=== PATIENT | male | born 1965 | race Caucasian/White ===

== ENCOUNTER 2018-03-26 00:58 | Inpatient (IN) | END 2018-03-29 17:20 | disposition home or self-care (01) | DRG 641 ==

== ENCOUNTER 2018-06-14 14:31 | Emergency (ER) | END 2018-06-14 19:43 | disposition home or self-care (01) ==

== ENCOUNTER 2018-11-02 08:31 | Emergency (ER) | payer OTHER ==
[~2018-11-02] VITALS: Ht 175.3 cm; Wt 94.0 kg
[~2018-11-02 08:31] MED LIST: AMLO-147 PO; CHLO25TA2 PO; GENVOYA PO; PARO10TA76 PO; POTA20TA96 PO
[2018-11-02 08:35] VITALS: Ht 175.3 cm; Wt 94.0 kg
[2018-11-02] MEDS ORDERED: DIPHENHYDRAMINE 50 MG INJ IV STA (09:28)
[2018-11-02] MEDS ORDERED: METOCLOPRAMIDE 10 MG INJ IV STA (09:28)
[2018-11-02] MEDS ORDERED: SOD CHLORIDE 0.9% 500 ML IV STA (09:28)
[2018-11-02] MEDS ORDERED: HYDROmorphONE 1 MG/ML SYG IV STA ×2 (09:28→11:32)
--- NOTE | 2018-11-02 10:17 | ERD ---
ER Documentation Chief Complaint Chief Complaint JON X 3 DAYS , B/L FOOT PAIN X 1 WEEK HPI This is a 53-year-old man with a history of hypertension and HIV who has multiple complaints. He says she has had a headache in the frontal vertex region that is constant with no photophobia phonophobia or positional change worsening and no fever for the past 3 days. He said that the onset of a headache his left arm and leg became tingling. Again, this started 3 days ago. He is also complaining that his feet hurt, is also having vague off-and-on chest pain to the left upper lateral chest for the past week as well for a few seconds each time. Denies any fever no GI symptoms or cough ROS All systems reviewed and are negative except as per history of present illness. Medications Home Meds Reported Medications Potassium Chloride* (K-Dur*) 10 Meq Tab.prt.sr, 10 MEQ PO TID, TAB 11/02/18 Metoprolol Tartrate* (Lopressor*) 50 Mg Tab, 50 MG PO BID, #60 TAB 11/02/18 Citalopram Hydrobromide* (Celexa*) 20 Mg Tablet, 20 MG PO DAILY, #30 TAB 11/02/18 Zolpidem Tartrate* (Zolpidem Tartrate*) 10 Mg Tablet, 10 MG PO QHS PRN for INSOMNIA, #30 TAB 11/02/18 Discontinued Reported Medications [Genvoya] No Conflict Check, 1 TAB PO DAILY 03/26/18 Chlorthalidone* (Chlorthalidone*) 25 Mg Tablet, 25 MG PO DAILY, TAB 03/26/18 Amlodipine Besylate* (Amlodipine Besylate*) 10 Mg Tablet, 10 MG PO DAILY, #30 TAB 03/26/18 Discontinued Scripts Potassium Chloride* (Potassium Chloride*) 20 Meq Tablet.er, 20 MEQ PO DAILY, #30 TAB.SA Prov:PAUL COATES DO 06/14/18 Paroxetine Hcl* (Paroxetine*) 10 Mg Tablet, 10 MG PO DAILY for 30 Days, #30 TAB 1 Refill Prov:NICK SAENZ 03/29/18 Potassium Chloride* (Potassium Chloride*) 20 Meq Tablet.er, 20 MEQ PO DAILY for 3 Days, #3 TAB.SA Prov:NICK SAENZ. 03/29/18 Allergies Allergies: Coded Allergies: No Known Allergy (Unverified , 11/02/18) PMhx/Soc History of Surgery: No Anesthesia Reaction: No Hx Neurological Disorder: No Hx Respiratory Disorders: No Hx Cardiac Disorders: Yes (HTN) Hx Psychiatric Problems: No (anxiety/depression) Hx Miscellaneous Medical Probl: Yes (insomnia) Hx Alcohol Use: Yes Hx Substance Use: No Hx Tobacco Use: No Smoking Status: Never smoker FmHx Family History: No coronary disease Physical Exam Vitals Vital Signs Date Temp Pulse Resp B/P (MAP) Pulse Ox O2 O2 Flow FiO2 Time Delivery Rate 11/02/18 97.8 81 18 181/111 97 08:35 (134) Physical Exam Const: Well-developed, well-nourished Head: Atraumatic, normocephalic Eyes: Normal Conjunctiva, PERRLA, EOMI, normal sclera, no nystagmus ENT: Normal External Ears, Nose and Mouth, moist mucus membranes. Neck: Full range of motion. No meningismus, no lymphadenopathy. Resp: Clear to auscultation bilaterally, no wheezing, rhonchi, rales Cardio: Regular rate and rhythm, no murmurs, S1 S2 present Abd: Soft, non tender x 4, non distended. Normal bowel sounds, no guarding or rebound, no pulsitile abdominal masses or bruits Skin: No petechiae or rashes, no ecchymosis , no maculopapular rash Back: No midline or flank tenderness Ext: No cyanosis, or edema, FROM x 4, normal inspection, neurovascularly intact x 4 Neur: Awake and alert, STR 5/5 x 4, subjective tingling to the left upper and lower extremity, cerebellum intact Psych: Normal Mood and Affect Result Diagram: 11/02/18 0941 11/02/18 0941 Results 24 hrs Laboratory Tests Test 11/02/18 09:41 11/02/18 09:42 White Blood Count 4.8 10^3/ul Red Blood Count 4.77 10^6/ul Hemoglobin 16.3 g/dl Hematocrit 44.0 % Mean Corpuscular Volume 92.2 fl Mean Corpuscular Hemoglobin 34.2 pg Mean Corpuscular Hemoglobin Concent 37.0 g/dl Red Cell Distribution Width 11.6 % Platelet Count 291 10^3/UL Mean Platelet Volume 8.8 fl Immature Granulocytes % 0.400 % Neutrophils % 38.9 % Lymphocytes % 47.1 % Monocytes % 12.6 % Eosinophils % 0.4 % Basophils % 0.6 % Nucleated Red Blood Cells % 0.0 /100WBC Immature Granulocytes # 0.020 10^3/ul Neutrophils # 1.9 10^3/ul Lymphocytes # 2.3 10^3/ul Monocytes # 0.6 10^3/ul Eosinophils # 0.0 10^3/ul Basophils # 0.0 10^3/ul Nucleated Red Blood Cells # 0.0 10^3/ul Sodium Level 128 mmol/L Potassium Level 4.2 mmol/L Chloride Level 86 mmol/L Carbon Dioxide Level 26 mmol/L Anion Gap 16 Blood Urea Nitrogen 9 mg/dl Creatinine 0.88 mg/dl Est Glomerular Filtrat Rate mL/min > 60 mL/min Glucose Level 119 mg/dl Calcium Level 10.0 mg/dl Troponin I < 0.012 ng/ml Prothrombin Time 12.1 Sec Prothrombin Time Ratio 0.9 INR International Normalized Ratio 0.89 Activated Partial Thromboplast Time 28.6 Sec Current Medications Medications Dose Sig/Piero Start Time Status Last (Trade) Ordered Route PRN Stop Time Admin Dose Reason Admin Sodium 500 ml @ Q1H STAT 11/02/18 DC 11/02/18 Chloride 500 mls/hr IV 09:28 09:36 11/02/18 10:27 10 mg ONCE STAT 11/02/18 DC 11/02/18 Metoclopramid IV 09:28 09:35 e HCl 11/02/18 09:30 (Reglan) 1 mg ONCE STAT 11/02/18 DC 11/02/18 Hydromorphone IV 09:28 09:36 HCl 11/02/18 09:30 (Dilaudid) 25 mg ONCE STAT 11/02/18 DC 11/02/18 Diphenhydrami IV 09:28 09:35 ne HCl 11/02/18 09:30 (Benadryl) 0.5 mg ONCE STAT 11/02/18 Hydromorphone IV 11:32 HCl 11/02/18 11:33 (Dilaudid) Ondansetron 4 mg ONCE STAT 11/02/18 HCl (Zofran IV 11:32 Inj) 11/02/18 11:33 Procedures/MDM Ordering MD: GIA CALLES DO Location: E/R Room/Bed: PROCEDURE: XR Chest. CLINICAL INDICATION: Chest pain , headache TECHNIQUE: Single portable view of the chest was obtained COMPARISON: None FINDINGS: The heart is enlarged. The lungs are clear. There is no pleural effusion or pneumothorax. RPTAT: AA IMPRESSION: Mild Cardiomegaly. .Wei Zee MD, Date Time Electronically viewed and signed by .Wei Zee MD, MD on 11/02/2018 10:02 .S/ CC: GIA CALLES DO [id number] EKG: Rate/Rhythm: Will sinus rhythm, Q waves in lead III QRS, ST, QT: NORMAL AL, QRS, QT] Impression: Abnormal EKG Ordering MD: GIA CALLES DO Location: E/R Room/Bed: PROCEDURE: CT Brain without contrast. CLINICAL INDICATION: Pain, headache TECHNIQUE: Routine CT scan of the brain was performed on a high resolution multi detector scanner without intravenous contrast. One or more of the following dose reduction techniques were used: Automated exposure control; Adjustment of the mA and/or kV according to patient size; Use of iterative reconstruction technique. CTDI = 39 mGy. DLP = 634 mGy-cm. DICOM images are available. COMPARISON: No prior relevant examinations are available for comparison. FINDINGS: Hemorrhage: No evidence of intracranial hemorrhage. Acute ischemic changes: No evidence of acute ischemic changes. Mass effect: None. Parenchymal volume: Within normal limits for age. Ventricular system: Concordant with parenchymal volume. Chronic changes: Mild chronic-appearing microvascular ischemic changes of the supratentorial white matter. Atherosclerotic calcifications of the cavernous portions of both internal carotid arteries are present. Extracranial soft tissues: Unremarkable. Calvarium: No fractures. Paranasal sinuses: Visualized paranasal sinuses are clear. Mastoid air cells: Visualized mastoid air cells are clear. IMPRESSION: No acute intracranial abnormalities. Mild chronic-appearing microvascular ischemic changes of the supratentorial white matter. RPTAT: AADD .Los Gallagher MD, Date Time Electronically viewed and signed by .Los Gallagher MD, on 11/02/2018 10:54 .B/ CC: GIA CALLES DO [id number] The patient was reevaluated at 11:30 AM. He says his headache is a 3 out of 10 currently and his left arm and leg symptoms of tingling are completely normal now. The patient states that he has not slept in 4 days. I feel the patient's symptoms are consistent with a complex migraine headache and not a stroke.. The left upper lateral chest pain is likely not cardiac in nature only lasting a few seconds but he is given warning signs. We will discharge him home with follow-up with some sleep aids and headache m edication Patient feels much better at this time, and vital signs are normal, symptoms have improved. I did give strict instructions to return to the ED if symptoms continue or worsen, patient will otherwise follow-up with primary care physician. Patient understood instructions and agreed to plan. Disclaimer: Inadvertent spelling and grammatical errors are likely due to EHR/dictation software use and do not reflect on the overall quality of patient care. Also, please note that the electronic time recorded on this note does not necessarily reflect the actual time of the patient encounter. Departure Diagnosis: Primary Impression: Migraine headache Migraine type: unspecified Status migrainosus presence: without status migrainosus Intractability: not intractable Qualified Codes: G43.909 - Migraine, unspecified, not intractable, without status migrainosus Additional Impression: Insomnia Insomnia type: unspecified Qualified Codes: G47.00 - Insomnia, unspecified Condition: Stable GIA CALLES DO Nov 02, 2018 10:17
[2018-11-02] MEDS ORDERED: ZOLP10TA5 PO (10:24)
[2018-11-02] MEDS ORDERED: CITA20TA11 PO (10:25)
[2018-11-02] MEDS ORDERED: POTA10TA37 PO (10:25)
[2018-11-02] MEDS ORDERED: METO-429 PO (10:25)
[2018-11-02] MEDS ORDERED: ONDANSETRON 4 MG INJ IV STA (11:32)
[2018-11-02] MEDS ORDERED: LORA1TAB PO (11:39)
[2018-11-02] MEDS ORDERED: HYDR-3980 PO (11:39)
[2018-11-02] MEDS ORDERED: IBUP800T48 PO (11:39)
[2018-11-02 12:40] VITALS: BP 168/86; PULSE 74; RESP 14
== END 2018-11-02 12:43 | disposition home or self-care (01) ==
LOC: E/R 08:31
DX: G43.909 Migraine, unspecified, not intractable, without status migrainosus (principal); G47.00 Insomnia, unspecified; I10 Essential (primary) hypertension; R40.2142 Coma scale, eyes open, spontaneous, at arrival to emergency department; R40.2252 Coma scale, best verbal response, oriented, at arrival to emergency department; R40.2362 Coma scale, best motor response, obeys commands, at arrival to emergency department; R07.9 Chest pain, unspecified; Z21 Asymptomatic human immunodeficiency virus [HIV] infection status
CPT/HCPCS: 36415; 70450; 71045; 80048; 84484; 85025; 85610; 85730; 93005; 96374; 96375; 96376; J1170; J1200; J2405; J2765; J7040; Z7502

== ENCOUNTER 2019-04-21 22:09 | Inpatient (IN) | payer OTHER ==
[~2019-04-21] VITALS: Ht 172.7 cm; Wt 98.6 kg
[~2019-04-21 22:09] MED LIST changes: +ASPI-817 PO; +CITA20TA11 PO; +CYCL10TA7 PO; +DEME150T8 PO; +ELVI1TAB3 PO; +FLUT16SP17 NASAL; -GENVOYA PO; +HYDR-3980 PO; +IBUP800T48 PO; +LORA1TAB PO; +METO-429 PO; +OMEG-26 PO; -PARO10TA76 PO; +POTA10TA37 PO; -POTA20TA96 PO; +ZOLP10TA5 PO; +[UNRECOGNIZED DRUG - CODE] PO
[2019-04-22] MEDS ORDERED: KETOROLAC 15 MG INJ IV STA (02:11)
[2019-04-22] MEDS ORDERED: ONDANSETRON 4 MG INJ IV STA (03:47)
[2019-04-22] MEDS ORDERED: morphine 2 MG INJ IV STA (03:47)
[2019-04-22] MEDS ORDERED: POTASSIUM CHLORIDE (SR) 20 MEQ TAB PO ONE (04:10)
[2019-04-22] MEDS: ACETAMINOPHEN 325 MG TAB PO PRN ×2 (05:53→16:27)
[2019-04-22] MEDS ORDERED: ZOLPIDEM 5 MG TAB PO PRN (06:00)
[2019-04-22] MEDS ORDERED: NACL 0.9% 3 ML SYG IV SCH (06:00)
[2019-04-22] MEDS ORDERED: ONDANSETRON 4 MG INJ IV PRN (06:00)
[2019-04-22] MEDS ORDERED: SOD CHLORIDE 0.9% 1,000 ML IV SCH (06:00)
[2019-04-22] MEDS ORDERED: LORAZEPAM 0.5 MG TAB PO PRN (06:00)
[2019-04-22] MEDS ORDERED: morphine 4 MG/ML VIAL IV ONE (06:38)
[2019-04-22] MEDS: POTASSIUM CHLORIDE (SR) 10 MEQ TAB PO SCH ×3 (09:00→21:16)
[2019-04-22] MEDS: ASPIRIN (EC) 81 MG TAB PO SCH (09:00)
[2019-04-22] MEDS: FLUTICASONE 0.05% 16 GM NAS SPRAY NASAL SCH ×2 (09:00→21:15)
[2019-04-22] MEDS ORDERED: NACL 3% 500 ML IV SCH (13:30)
[2019-04-22] MEDS: METOPROLOL 50 MG TAB PO SCH ×2 (15:01→21:16)
[2019-04-22] MEDS: CYCLOBENZAPRINE 10 MG TAB PO SCH (15:01)
[2019-04-22] MEDS: AMLODIPINE 10 MG TAB PO SCH (15:06)
[2019-04-22 15:39] VITALS: BP 150/94; PULSE 66; RESP 18
[2019-04-22 16:33] VITALS: Ht 172.7 cm; Wt 98.6 kg
[2019-04-22 20:00] VITALS: BP 121/79; PULSE 69; RESP 20
[2019-04-22 23:47] VITALS: BP 123/80; PULSE 65; RESP 20
[2019-04-23 03:36] VITALS: BP 117/78; PULSE 69; RESP 18
[2019-04-23 07:37] VITALS: BP 127/70; PULSE 70; RESP 18
[2019-04-23] MEDS: ASPIRIN (EC) 81 MG TAB PO SCH (08:19)
[2019-04-23] MEDS: POTASSIUM CHLORIDE (SR) 10 MEQ TAB PO SCH ×3 (08:19→20:16)
[2019-04-23] MEDS: AMLODIPINE 10 MG TAB PO SCH (08:19)
[2019-04-23] MEDS: CYCLOBENZAPRINE 10 MG TAB PO SCH (08:19)
[2019-04-23] MEDS: METOPROLOL 50 MG TAB PO SCH ×2 (08:21→20:16)
[2019-04-23] MEDS: FLUTICASONE 0.05% 16 GM NAS SPRAY NASAL SCH ×2 (08:21→20:16)
[2019-04-23 11:16] VITALS: BP 121/77; PULSE 64; RESP 18
[2019-04-23 15:13] VITALS: BP 106/67; PULSE 63; RESP 18
[2019-04-23] MEDS ORDERED: NACL 3% 500 ML IV ONE (16:00)
[2019-04-23] MEDS ORDERED: NACL 3% IV SCH (17:00)
[2019-04-23] MEDS: NACL 3% 500 ML IV SCH ×2 (17:51→21:30)
[2019-04-23] MEDS: ACETAMINOPHEN 325 MG TAB PO PRN (18:11)
[2019-04-23 20:10] VITALS: BP 116/71; PULSE 73; RESP 19
[2019-04-24] VITALS (7 sets, daily range): BP systolic 106–137; BP diastolic 64–82; PULSE 61–78; RESP 18–19
[2019-04-24] MEDS: METOPROLOL 50 MG TAB PO SCH ×3 (09:00→20:36)
[2019-04-24] MEDS: POTASSIUM CHLORIDE (SR) 10 MEQ TAB PO SCH ×4 (09:22→20:36)
[2019-04-24] MEDS: CYCLOBENZAPRINE 10 MG TAB PO SCH (09:22)
[2019-04-24] MEDS: ASPIRIN (EC) 81 MG TAB PO SCH (09:23)
[2019-04-24] MEDS: FLUTICASONE 0.05% 16 GM NAS SPRAY NASAL SCH ×2 (09:26→20:10)
[2019-04-24] MEDS: AMLODIPINE 10 MG TAB PO SCH (09:26)
[2019-04-24] MEDS: ACETAMINOPHEN 325 MG TAB PO PRN ×3 (09:38→20:36)
[2019-04-24] MEDS: SODIUM CHLORIDE 1 GM TAB PO SCH ×4 (10:14→20:36)
[2019-04-24] MEDS: ELVITEG/COBI/EMTRIC/TENOFO ALA 1 EACH TABLET PO SCH (10:15)
[2019-04-24] MEDS: DEMECLOCYCLINE 150 MG TAB PO SCH ×3 (10:15→20:36)
[2019-04-25 03:27] VITALS: BP 117/80; PULSE 69; RESP 19
[2019-04-25 07:23] VITALS: BP 122/78; PULSE 63; RESP 20
[2019-04-25] MEDS: FLUTICASONE 0.05% 16 GM NAS SPRAY NASAL SCH (08:47)
[2019-04-25] MEDS: DEMECLOCYCLINE 150 MG TAB PO SCH (08:48)
[2019-04-25] MEDS: SODIUM CHLORIDE 1 GM TAB PO SCH ×2 (08:48→13:42)
[2019-04-25] MEDS: CYCLOBENZAPRINE 10 MG TAB PO SCH (08:48)
[2019-04-25] MEDS: ASPIRIN (EC) 81 MG TAB PO SCH (08:48)
[2019-04-25] MEDS: METOPROLOL 50 MG TAB PO SCH (08:48)
[2019-04-25] MEDS: POTASSIUM CHLORIDE (SR) 10 MEQ TAB PO SCH ×2 (08:48→13:42)
[2019-04-25] MEDS: ELVITEG/COBI/EMTRIC/TENOFO ALA 1 EACH TABLET PO SCH (08:48)
[2019-04-25] MEDS: AMLODIPINE 10 MG TAB PO SCH (08:49)
[2019-04-25 11:31] VITALS: BP 113/76; PULSE 64; RESP 20
== END 2019-04-25 15:40 | disposition home or self-care (01) | DRG 644 ==
LOC: E/R 22:09 → 6WM 04-22 05:41
PROVIDERS: ADMIT Internal Medicine; ATTEND Internal Medicine
DX: E22.2 Syndrome of inappropriate secretion of antidiuretic hormone (principal); B20 Human immunodeficiency virus [HIV] disease; E87.6 Hypokalemia; R51 Headache; I10 Essential (primary) hypertension; F41.8 Other specified anxiety disorders; R07.89 Other chest pain
CPT/HCPCS: 36415; 71045; 80048; 80053; 80307; 81001; 81003; 82043; 82436; 82533; 82550; 82553; 83735; 83880; 83930; 83935; 84100; 84133; 84155; 84300; 84443; 84484; 84560; 85025; 93005; 96374; 96375; J1885; J2270; J2405; J7030